=== PATIENT | female | born 1980 | race Caucasian/White ===

== ENCOUNTER 2018-02-07 11:42 | Emergency (ER) | payer MEDICARE, OTHER ==
[~2018-02-07] VITALS: Ht 157.5 cm; Wt 125.0 kg
[2018-02-07] MEDS ORDERED: HYDROcodone/acetaminophen 10/325mg tab PO ONE (12:10)
[2018-02-07] MEDS ORDERED: fentaNYL/PF 50MCG/1 ML 2ML syringe IV ONE (12:35)
[2018-02-07] MEDS ORDERED: ondansetron/PF 4mg/2ml inj IV ONE (13:20)
[2018-02-07] MEDS ORDERED: HYDR-3965 PO (13:30)
[2018-02-07] MEDS ORDERED: WHEE1EAC12 MC (13:30)
[2018-02-07 14:18] VITALS: BP 160/90
== END 2018-02-07 14:24 | disposition home or self-care (01) ==
LOC: ER 11:42
DX: S83.005A Unspecified dislocation of left patella, initial encounter (principal); S82.832A Other fracture of upper and lower end of left fibula, initial encounter for closed fracture; Z79.899 Other long term (current) drug therapy; Z88.8 Allergy status to other drugs, medicaments and biological substances; W01.0XXA Fall on same level from slipping, tripping and stumbling without subsequent striking against object, initial encounter; Y93.89 Activity, other specified; Y92.89 Other specified places as the place of occurrence of the external cause; Y99.8 Other external cause status
CPT/HCPCS: 27560; 73560; 73564; 96374; 99284; J2405; J3010; J7030

== ENCOUNTER 2022-01-24 10:41 | Emergency (ER) | payer MEDICARE ==
[~2022-01-24] VITALS: Ht 167.6 cm; Wt 111.4 kg
[~2022-01-24 10:41] MED LIST: WHEE1EAC12 MC
--- NOTE | 2022-01-24 11:30 | NUR ---
Patient c/o general malaise. Daignosed with covid yesterday. Patient denies any other complaints.
[2022-01-24] MEDS ORDERED: NIRM1TAB PO ×2 (12:04→13:33)
[2022-01-24] MEDS ORDERED: NAPR-56 PO ×2 (12:04→13:33)
[2022-01-24 12:56] VITALS: BP 135/78
== END 2022-01-24 13:01 | disposition home or self-care (01) ==
LOC: ER 10:42
DX: U07.1 COVID-19 (principal); Z88.8 Allergy status to other drugs, medicaments and biological substances
CPT/HCPCS: 87811; 99283